=== PATIENT | male | born 2000 | race Hispanic/Latino ===

== ENCOUNTER 2019-04-06 12:06 | Emergency (ER) | payer OTHER ==
[~2019-04-06] VITALS: Ht 160 cm; Wt 65.9 kg
[2019-04-06] MEDS ORDERED: TEST200I14 IM (13:17)
[2019-04-06] MEDS ORDERED: BACITRACIN OINT 30GM TOP ONE (13:30)
[2019-04-06] MEDS ORDERED: CLEO150C PO (13:43)
[2019-04-06 13:54] VITALS: BP 125/73
== END 2019-04-06 13:55 | disposition home or self-care (01) ==
LOC: M ED 12:06
DX: S41.152A Open bite of left upper arm, initial encounter (principal); W54.0XXA Bitten by dog, initial encounter; Y92.410 Unspecified street and highway as the place of occurrence of the external cause; Y93.9 Activity, unspecified; Y99.9 Unspecified external cause status; I10 Essential (primary) hypertension; Z79.899 Other long term (current) drug therapy; Z88.0 Allergy status to penicillin

== ENCOUNTER 2019-04-25 18:08 | Emergency (ER) | payer OTHER ==
[~2019-04-25] VITALS: Ht 160 cm; Wt 65.9 kg
[2019-04-25 18:08] VITALS: BP 121/66
[~2019-04-25 18:08] MED LIST: CLEO150C PO; TEST200I14 IM
[2019-04-25] MEDS ORDERED: OXYC1TAB23 PO (18:21)
[2019-04-25] MEDS ORDERED: IBUP-1022 PO (18:21)
[2019-04-25] MEDS ORDERED: RABIES VACCINE HUMAN 2.5 INTERNATIONAL UNITS/ML VIAL (90675) IM ONE (19:00)
== END 2019-04-25 19:14 | disposition home or self-care (01) ==
LOC: M ED 18:51
DX: Z20.3 Contact with and (suspected) exposure to rabies (principal); Z23 Encounter for immunization

== ENCOUNTER 2019-06-29 08:17 | Emergency (ER) | payer OTHER ==
[~2019-06-29] VITALS: Ht 160 cm; Wt 69.8 kg
[~2019-06-29 08:17] MED LIST changes: +IBUP-1022 PO; +OXYC1TAB23 PO
[2019-06-29] MEDS ORDERED: MEDR10TA PO (09:21)
[2019-06-29 09:56] LABS: BASO # 0.1 10^3/uL (0.0-0.2); BASO % 1.4 % (0.0-1.0); EOS % 0.8 % (0.0-3.0); HEMATOCRIT 43.2 % (36.0-47.0); HEMOGLOBIN 13.8 g/dl (12.0-15.5); LYMPH # 1.8 10^3/uL (1.5-6.5); LYMPH % 36.4 % (24.0-44.0); MEAN CORPUSCULAR HEMOGLOBIN 26.3 pg (27.0-33.0); MEAN CORPUSCULAR HGB CONC 31.9 g/dl (32.0-36.5); MEAN CORPUSCULAR VOLUME 82.3 fl (80.0-96.0); MONO # 0.4 10^3/uL (0.0-0.8); MONO % 7.9 % (0.0-5.0); NEUTROPHILS # 2.6 10^3/uL (1.8-7.7); NEUTROPHILS % 53.3 % (36.0-66.0); PLATELET COUNT, AUTOMATED 356 10^3/uL (150-450); RED BLOOD COUNT 5.25 10^6/uL (4.00-5.40); WHITE BLOOD COUNT 4.9 10^3/uL (4.0-10.0)
[2019-06-29 10:25] LABS: HCG, SERUM QUALITATIVE NEGATIVE (NEGATIVE)
[2019-06-29 10:32] LABS: ALBUMIN 4.3 GM/DL (3.2-5.2); ALT/SGPT 26 U/L (12-78); BILIRUBIN,DIRECT < 0.1 MG/DL (0.0-0.2); BILIRUBIN,TOTAL 0.2 MG/DL (0.2-1.0); BLOOD UREA NITROGEN 9 MG/DL (7-18); CARBON DIOXIDE LEVEL 29 MEQ/L (21-32); CHLORIDE LEVEL 108 MEQ/L (98-107); CREATININE FOR GFR 0.77 MG/DL (0.55-1.30); GLUCOSE, FASTING 97 MG/DL (70-100); LIPASE 100 U/L (73-393); POTASSIUM SERUM 4.5 MEQ/L (3.5-5.1); SODIUM LEVEL 143 MEQ/L (136-145); TOTAL PROTEIN 8.1 GM/DL (6.4-8.2)
[2019-06-29] MEDS ORDERED: IBUPROFEN 800 MG TAB PO ONE (12:00)
[2019-06-29 13:17] VITALS: BP 123/66
--- NOTE | 2019-06-30 07:31 | REP ---
PELVIC ULTRASOUND COMPLETE: 06/29/2019. Clinical history: Abnormal vaginal bleeding, pelvic pain and cramping for 5 months. Hormonal therapy. Findings: No prior studies. Only transabdominal images were performed, the patient declined EV probe. Uterus anteverted and anteflexed measuring 5.5 x 4.1 x 5.8 cm. Endometrial echogenic stripe is thin, homogeneous and measures 2 mm. No fluid in that endometrial cavity. Uterine contour smooth. No evidence of uterine mass or pelvic free fluid. The right ovary is 2.7 x 2.0 x 1.9 cm and left ovary 2.5 x 1.3 x 1.3 cm. Both ovaries show normal Doppler tracings with resistive index of 0.55 on the right and 0.57 on the left. No adnexal mass or pelvic free fluid. Impression: 1. Uterus, endometrial stripe and ovaries grossly unremarkable. Normal blood flow to both ovaries. No free fluid or mass in the pelvis. Negative exam. Electronically Signed by Maldonado Nolen MD 06/30/2019 08:06 A
== END 2019-06-29 13:18 | disposition home or self-care (01) ==
LOC: M ED 08:17 → EDSEX 08:17 → M ED 13:18
DX: N93.9 Abnormal uterine and vaginal bleeding, unspecified (principal); F64.8 Other gender identity disorders; I10 Essential (primary) hypertension; Z79.899 Other long term (current) drug therapy; Z79.890 Hormone replacement therapy; Z88.0 Allergy status to penicillin

== ENCOUNTER 2019-11-20 07:24 | Emergency (ER) | payer OTHER ==
[~2019-11-20] VITALS: Ht 160 cm; Wt 73.6 kg
[~2019-11-20 07:24] MED LIST changes: +MEDR10TA PO
[2019-11-20] MEDS ORDERED: tylenol (07:36)
[2019-11-20] MEDS ORDERED: IBUPROFEN 800 MG TAB PO ONE (08:00)
[2019-11-20 08:51] LABS: INFLUENZA A AMPLIFICATION NEGATIVE (NEGATIVE); INFLUENZA B AMPLIFICATION POSITIVE (NEGATIVE)
[2019-11-20 09:31] VITALS: BP 120/77
== END 2019-11-20 09:38 | disposition home or self-care (01) ==
LOC: EDSEX 07:24 → M ED 07:24
DX: J10.89 Influenza due to other identified influenza virus with other manifestations (principal); I10 Essential (primary) hypertension; Z79.899 Other long term (current) drug therapy; Z88.0 Allergy status to penicillin

== ENCOUNTER 2021-03-28 19:08 | Emergency (ER) | payer OTHER ==
[~2021-03-28] VITALS: Ht 160 cm; Wt 78.2 kg
[~2021-03-28 19:08] MED LIST changes: +tylenol
[2021-03-28 20:08] VITALS: BP 133/93
== END 2021-03-28 21:20 | disposition home or self-care (01) ==
LOC: M ED 19:08
DX: F43.0 Acute stress reaction (principal); Z79.890 Hormone replacement therapy; Z88.0 Allergy status to penicillin